=== PATIENT | female | born 1960 | race Caucasian/White ===

== ENCOUNTER 2017-06-01 13:05 | Inpatient (IN) | payer MEDICAID | END 2017-06-05 17:36 | disposition short-term general hospital (02) | DRG 690 | LOC: D.ER 13:05 → D.ICU 20:32 | PROVIDERS: ADMIT Family Medicine Adult Medicine | DX: N39.0 Urinary tract infection, site not specified (principal); F20.5 Residual schizophrenia; H60.91 Unspecified otitis externa, right ear; R41.0 Disorientation, unspecified; E87.6 Hypokalemia ==

== ENCOUNTER 2017-09-17 12:42 | Emergency (ER) | payer MEDICAID ==
[2017-06-02 09:36] VITALS: BMI 18.9
[~2017-09-17 12:42] MED LIST: CIPRO250 MG PO
== END 2017-09-17 16:10 | disposition home or self-care (01) ==
LOC: D.ER 12:42
DX: Z01.83 Encounter for blood typing (principal)

== ENCOUNTER 2017-10-09 18:44 | Emergency (ER) | payer MEDICAID ==
[2017-06-02 09:36] VITALS: BMI 18.9
[2017-10-09 19:05] LABS: BASOPHILS 0.7 % (0-2); EOSINOPHILS 1.3 % (0-7); HEMATOCRIT 40.6 % (36.0-48.0); HEMOGLOBIN 13.1 g/dL (12-16); IMMATURE GRANULOCYTES 0.7 % (0-5); LYMPHOCYTES 25.8 % (15-50); MCH 29.8 pg (26.0-34.0); MCHC 32.3 g/dL (31.0-37.0); MCV 92.5 fL (80.0-100.0); MEAN PLATELET VOLUME 9.7 fL (7.4-10.4); MONOCYTES 9.7 % (2-11); NEUTROPHILS 61.8 % (40-80); RBC 4.39 10x6/uL (4.00-5.40); RDW 13.4 % (11.5-14.5); WBC 5.6 10x3/uL (4.8-10.8)
[2017-10-09 19:26] LABS: ALBUMIN 3.3 g/dL (3.4-5.0); BILIRUBIN - TOTAL 0.1 mg/dL (0.2-1.3); CARBON DIOXIDE 22.8 mmol/L (21.0-32.0); CREATININE - SERUM 1.1 mg/dL (0.6-1.3); POTASSIUM - SERUM 3.8 mmol/L (3.5-5.1); PROTEIN - SERUM 7.4 g/dL (6.4-8.2)
[2017-10-09 20:02] LABS: PLATELET COUNT 175 10x3/uL (130-400)
[2017-10-09 21:54] LABS: APPEARANCE CLEAR (CLEAR); BILIRUBIN NEGATIVE (NEGATIVE); COLOR YELLOW (YELLOW); GLUCOSE NEGATIVE (NEGATIVE); KETONE NEGATIVE (NEGATIVE); NITRITE NEGATIVE (NEGATIVE); PROTEIN NEGATIVE (NEGATIVE); SPECIFIC GRAVITY 1.015 (1.005-1.020); UROBILINOGEN NORMAL (NORMAL)
[2017-10-09 23:30] LABS: UDS - AMPHET NEGATIVE QUAL (NEGATIVE); UDS - BARB POSITIVE QUAL (NEGATIVE); UDS - BENZO POSITIVE QUAL (NEGATIVE); UDS - COCAINE NEGATIVE QUAL (NEGATIVE); UDS - OPIATE NEGATIVE QUAL (NEGATIVE); UDS - PCP NEGATIVE QUAL (NEGATIVE); UDS - THC NEGATIVE QUAL (NEGATIVE)
== END 2017-10-09 23:55 | disposition home or self-care (01) ==
LOC: D.ER 18:44
PROVIDERS: Emergency Medicine
DX: Z86.59 Personal history of other mental and behavioral disorders (principal); F17.200 Nicotine dependence, unspecified, uncomplicated

== ENCOUNTER 2017-11-03 18:19 | Emergency (ER) | payer MEDICAID | END 2017-11-03 22:42 | disposition home or self-care (01) | LOC: D.ER 18:19 | DX: S16.1XXA Strain of muscle, fascia and tendon at neck level, initial encounter (principal); W01.0XXA Fall on same level from slipping, tripping and stumbling without subsequent striking against object, initial encounter; Y93.89 Activity, other specified; Y92.410 Unspecified street and highway as the place of occurrence of the external cause; S00.83XA Contusion of other part of head, initial encounter; E72.20 Disorder of urea cycle metabolism, unspecified ==

== ENCOUNTER 2017-11-04 07:10 | Emergency (ER) | payer MEDICAID ==
[2017-06-02 09:36] VITALS: BMI 18.9
== END 2017-11-04 10:20 | disposition home or self-care (01) ==
LOC: D.ER 07:10
DX: S00.83XA Contusion of other part of head, initial encounter (principal); W19.XXXA Unspecified fall, initial encounter; Y93.89 Activity, other specified; Y92.019 Unspecified place in single-family (private) house as the place of occurrence of the external cause; S00.81XA Abrasion of other part of head, initial encounter

== ENCOUNTER 2017-11-04 16:19 | Emergency (ER) | payer MEDICAID ==
[2017-06-02 09:36] VITALS: BMI 18.9
== END 2017-11-04 17:50 ==
LOC: D.ER 16:19
DX: R51 Headache (principal)